=== PATIENT | male | born 1985 | race American Indian/Alaskan Native ===

== ENCOUNTER 2021-01-26 12:11 | Emergency (ER) | payer SELFPAY ==
[2021-01-26 12:34] VITALS: BP 135/85
[2021-01-26 13:34] LABS: Hematocrit 48.1 % (35.5-45.6); Hemoglobin 16.3 gm/dl (11.8-15.2); Mean Corpuscular HGB Conc 34 % (32-34); Mean Corpuscular Volume 91 fl (84-94); Red Blood Count 5.27 M/mm3 (3.65-5.03); Red Cell Distribution Width 13.8 % (13.2-15.2)
[2021-01-26 13:38] LABS: Platelet Count 93 K/mm3 (140-440)
[2021-01-26 13:58] LABS: Bilirubin,Urine NEG (Negative); Blood,Urine SM (Negative); Color,Urine Amber (Yellow); Mucus,Urine FEW /HPF; Urobilinogen,Urine < 2.0 mg/dL (<2.0)
[2021-01-26 14:01] LABS: Alanine Aminotransferase 30 units/L (7-56); Albumin 3.3 g/dL (3.9-5); BUN/Creatinine Ratio 8; Blood Urea Nitrogen 8 mg/dL (9-20); Calcium 9.4 mg/dL (8.4-10.2); Hemolysis Index 6
--- NOTE | 2021-01-26 15:29 | Event Note ---
ED Screening Note ED Screening Note: diarrhea that began 5 days +abd pain +fatigue +chills subjective fever reports had a couple episodes of blood in the stool no vomiting pmhx HIV no allergies to meds former smoker +ETOH did not get vaccinated for COVID 19 This initial assessment/diagnostic orders/clinical plan/treatment(s) is/are s ubject to change based on patients health status, clinical progression and re- assessment by fellow clinical providers in the ED. Further treatment and workup at subsequent clinical providers discretion. Patient/guardian urged not to elope from the ED as their condition may be serious if not clinically assessed and managed. Initial orders include: acc evaluation
[2021-01-26 16:34] LABS: Total Cells Counted 100
[2021-01-26 16:35] LABS: Anisocytosis RARE
[2021-01-26] MEDS ORDERED: SODIUM CHLORIDE 0.9% 1000 ML 1,000 ML IV ONE (18:06)
[2021-01-26] MEDS ORDERED: FAMOTIDINE 20 MG/2 ML INJ IV ONE ×2 (18:06→21:00)
[2021-01-26] MEDS ORDERED: MORPHINE 4 MG/1 ML INJ IV ONE ×2 (18:06→21:00)
[2021-01-26] MEDS ORDERED: ONDANSETRON 4 MG/2 ML INJ IV ONE ×2 (18:06→21:00)
--- NOTE | 2021-01-26 21:53 | Cat Scan Report ---
CT ABDOMEN AND PELVIS WITH CONTRAST HISTORY: Pt complains of "Generalized" abd pain with diarrhea x4days [id number] 100ml. COMPARISON: None. TECHNIQUE: CT images of the abdomen and pelvis were obtained following administration of intravenous contrast. All CT scans at this location are performed using CT dose reduction for ALARA by means of automated exposure control. CONTRAST: 100 ml of intravenous contrast administered. FINDINGS: Lungs/bones: Lung bases are clear. No acute osseous abnormality. Mild DJD in the left SI joint. Abdomen/pelvis: The liver, gallbladder, spleen, pancreas, adrenals, kidneys, and proximal GI tract a ppear unremarkable. The bladder and prostate are unremarkable with no pelvic free fluid. There is mild circumferential wall thickening along the sigmoid colon and also another area at the sp lenic flexure, both with subtle adjacent stranding. The remainder of the colon appears unremarkable w ith no acute inflammatory change otherwise. The appendix is normal. IMPRESSION: 1. Inflammatory changes in the colon as outlined above suggesting colitis. Since there appear to be s kip areas, consider inflammatory bowel disease such as Crohn's in the differential. Signer Name: Bruce Choe MD Signed: 01/26/2021 9:48 PM Workstation Name: [id number]
[2021-01-26] MEDS ORDERED: metroNIDAZOLE/NS 500 MG/100 ML 500 MG/100 ML BAG IV ONE (22:10)
[2021-01-26] MEDS ORDERED: dexAMETHasone 20 MG/5 ML VIAL IV ONE (22:10)
[2021-01-26] MEDS ORDERED: levoFLOXacin 500 MG TAB PO ONE (22:10)
--- NOTE | 2021-01-26 23:24 | Emergency Department Report ---
ED Abdominal Pain HPI - General Chief Complaint: Abdominal Pain Stated Complaint: DIARRHEA/ABDOMINAL PAIN Time Seen by Provider: 01/26/21 15:26 Source: patient Mode of arrival: Ambulatory Limitations: No Limitations - History of Present Illness Initial Comments: Patient is a 35-year-old -[place] male with a history of HIV who presents to the ED with complaint of acute onset persistent diffuse abdominal pain that radiates to the lower abdomen diffusely with intermittent nausea and diarrhea for the last 1 week, worse in the last 2 days. Patient states that he has also not had any appetite to eat and has been feeling generally weak since the onset of the symptoms. Patient states that diarrhea has been constant and worse especially in the last 2 days and states that the lower abdominal pain gets worse after he has had bowel movement. Patient denies hematochezia, fever, chills, vomiting, cough, chest pain or shortness of breath, dysuria, urinary frequency and urgency, low back pain, headache, dizziness, syncope or change in vision and testicular pain. MD Complaint: abdominal pain, other (Diarrhea with nausea) -: Sudden, week(s) (1) Location: diffuse Radiation: LLQ, RLQ, suprapubic Migration to: no migration Severity: severe Severity scale (0 -10): 7 Quality: cramping, sharp Consistency: intermittent Improves With: nothing Worsens With: nothing Associated Symptoms: denies other symptoms, nausea, diarrhea, anorexia. denies: vomiting, fever, chills, dysuria, hematemesis, hematochezia, melena, hematuria, syncope - Related Data Previous Rx's Medication Instructions Recorded Last Taken Type Ciprofloxacin HCl 500 mg PO Q12H #20 tablet 01/26/21 Unknown Rx Dicyclomine [Bentyl] 20 mg PO Q6H PRN #30 tablet 01/26/21 Unknown Rx Ondansetron [Zofran Odt] 4 mg PO Q8HR PRN #15 tab.rapdis 01/26/21 Unknown Rx metroNIDAZOLE [Flagyl] 500 mg PO Q8HR #30 tablet 01/26/21 Unknown Rx traMADoL [Ultram] 50 mg PO Q6HR PRN #12 tablet 01/26/21 Unknown Rx Allergies Allergy/AdvReac Type Severity Reaction Status Date / Time No Known Allergies Allergy Verified 01/26/21 12:31 ED Review of Systems ROS: Stated complaint: DIARRHEA/ABDOMINAL PAIN Other details as noted in HPI Constitutional: malaise, weakness. denies: chills, fever Eyes: denies: eye pain, eye discharge, vision change ENT: denies: ear pain, throat pain Respiratory: denies: cough, shortness of breath, wheezing Cardiovascular: denies: chest pain, palpitations Endocrine: no symptoms reported Gastrointestinal: abdominal pain, nausea, diarrhea. denies: vomiting Genitourinary: denies: urgency, dysuria Musculoskeletal: denies: back pain, joint swelling, arthralgia Skin: denies: rash, lesions Neurological: denies: headache, weakness, paresthesias Psychiatric: denies: anxiety, depression Hematological/Lymphatic: denies: easy bleeding, easy bruising ED Past Medical Hx - Past Medical History Previous Medical History?: Yes Hx HIV: Yes - Surgical History Past Surgical History?: No - Medications Home Medications: Home Medications Medication Instructions Recorded Confirmed Last Taken Type Ciprofloxacin HCl 500 mg PO Q12H #20 tablet 01/26/21 Unknown Rx Dicyclomine [Bentyl] 20 mg PO Q6H PRN #30 tablet 01/26/21 Unknown Rx Ondansetron [Zofran Odt] 4 mg PO Q8HR PRN #15 tab.rapdis 01/26/21 Unknown Rx metroNIDAZOLE [Flagyl] 500 mg PO Q8HR #30 tablet 01/26/21 Unknown Rx traMADoL [Ultram] 50 mg PO Q6HR PRN #12 tablet 01/26/21 Unknown Rx ED Physical Exam - General Limitations: No Limitations General appearance: alert, in no apparent distress, anxious - Head Head exam: Present: atraumatic, normocephalic, normal inspection - Eye Eye exam: Present: normal appearance, PERRL, EOMI Pupils: Present: normal accommodation - ENT ENT exam: Present: normal exam, normal orophraynx, mucous membranes moist, TM's normal bilaterally, normal external ear exam - Neck Neck exam: Present: normal inspection, full ROM - Respiratory Respiratory exam: Present: normal lung sounds bilaterally. Absent: respiratory distress, wheezes, rales, rhonchi, chest wall tenderness, accessory muscle use, decreased breath sounds, prolonged expiratory - Cardiovascular Cardiovascular Exam: Present: regular rate, normal rhythm, normal heart sounds. Absent: systolic murmur, diastolic murmur, rubs, gallop - GI/Abdominal GI/Abdominal exam: Present: soft, tenderness (Palpable diffuse lower abdominal tenderness), normal bowel sounds. Absent: guarding, rebound, hyperactive bowel sounds, hypoactive bowel sounds, organomegaly - Extremities Exam Extremities exam: Present: normal inspection, full ROM, normal capillary refill - Back Exam Back exam: Present: normal inspection, full ROM. Absent: tenderness, CVA tenderness (R), CVA tenderness (L), muscle spasm, paraspinal tenderness, v ertebral tenderness - Neurological Exam Neurological exam: Present: alert, oriented X3, CN II-XII intact, normal gait, reflexes normal - Psychiatric Psychiatric exam: Present: normal affect, normal mood, anxious - Skin Skin exam: Present: warm, dry, intact, normal color. Absent: rash ED Course Vital Signs 01/26/21 01/26/21 12:33 12:37 Temperature 98.3 F Pulse Rate 88 Respiratory 16 Rate Blood Pressure 135/85 [Left] O2 Sat by Pulse 99 Oximetry ED Medical Decision Making - Lab Data Result diagrams: 01/26/21 13:05 01/26/21 13:05 - Radiology Data Radiology results: report reviewed, [place] [address] Cat Scan Report Signed Patient: ARJUN DEL ANGEL JR MR# : [id number] : 1985 Acct:[id number] Age/Sex: 35 / M ADM Date: 01/26/21 Loc: ED Attending Dr: Ordering Physician: CAITLIN YOST Date of Service: 01/26/21 Procedure(s): CT abdomen pelvis w con Accession Number(s): [id number] cc: CAITLIN YOST CT ABDOMEN AND PELVIS WITH CONTRAST HISTORY: Pt complains of "Generalized" abd pain with diarrhea x4days [id number] 100ml. COMPARISON: None. TECHNIQUE: CT images of the abdomen and pelvis were obtained following administration of intravenous contrast. All CT scans at this location are performed using CT dose reduction for ALARA by means of automated exposure control. CONTRAST: 100 ml of intravenous contrast administered. FINDINGS: Lungs/bones: Lung bases are clear. No acute osseous abnormality. Mild DJD in the left SI joint. Abdomen/pelvis: The liver, gallbladder, spleen, pancreas, adrenals, kidneys, and proximal GI tract appear unremarkable. The bladder and prostate are unremarkable with no pelvic free fluid. There is mild circumferential wall thickening along the sigmoid colon and also another area at the splenic flexure, both with subtle adjacent stranding. The remainder of the colon appears unremarkable with no acute inflammatory change otherwise. The appendix is normal. IMPRESSION: 1. Inflammatory changes in the colon as outlined above suggesting colitis. Since there appear to be skip areas, consider inflammatory bowel disease such as Crohn's in the differential. Signer Name: Bruce Choe MD Signed: 01/26/2021 9:48 PM Workstation Name: [id number] Transcribed By: LÁZARO Dictated By: Bruce Choe MD Electronically Authenticated By: Bruce Choe MD Signed Date/Time: 01/26/212147 DD/ 42 TD/TT: - Medical Decision Making This is a 35-year-old -[place] male with a history of HIV who presents to the ED with complaint of acute onset persistent diffuse abdominal pain that radiates to the lower abdomen diffusely with intermittent nausea and diarrhea for the last 1 week, worse in the last 2 days. Patient states that he has also not had any appetite to eat and has been feeling generally weak since the onset of the symptoms. Patient states that diarrhea has been constant and worse especially in the last 2 days and states that the lower abdominal pain gets worse after he has had bowel movement. In the ED, patient is alert and oriented x3 and is not in any distress. Patient was treated in the ED with normal saline, also given antacids and pain medications as well as antiemetics. Lab test results were reviewed and showed mild hyponatremia of 132 mmol/L. The rest of the lab test results were nonactionable. The abdomen pelvis CT scan with contrast showed inflammatory changes in the colon showing mild circumferential wall thickening along the sigmoid colon and also another area at the splenic flexure, both with subtle adjacent stranding suggestive of colitis. The remainder of the colon appears unremarkable with no acute inflammatory change otherwise. The appendix is normal. Since there appear to be skip areas, consider inflammatory bowel disease such as Crohn's in the differential. Patient was treated in the ED empirically with Flagyl 500 mg IV x1 and Levaquin 500 mg p.o. x1, also given steroid Decadron 10 mg IV. On reevaluation with patient's pain is well controlled medications. Patient was therefore discharged home on pain medications, antibiotics and advised to follow-up with his primary care physician in 5 to 7 days for reevaluation. Patient was also given a referral to the GI physician Dr. Zac Monroy follow-up in 3 to 5 days for further evaluation. Patient was advised return to the ED immediately if symptoms get worse. - Differential Diagnosis Colitis; viral gastroenteritis; diverticulitis; appendicitis; kidney stones Critical care attestation.: If time is entered above; I have spent that time in minutes in the direct care of this critically ill patient, excluding procedure time. ED Disposition Clinical Impression: Abdominal pain in male, Diarrhea in adult patient, Acute colitis, Crohn's disease of colon without complication Disposition: TO HOME OR SELFCARE Is pt being admited?: No Does the pt Need Aspirin: No Condition: Stable Instructions: Abdominal Pain, Adult, [id number], Diarrhea, Adult, [id number], Colitis Additional Instructions: All lab test results were reviewed and are all nonactionable. Abdomen pelvis CT scan with contrast showed inflammatory changes in the colon consistent with colitis although Crohn's disease cannot be ruled out based on the pattern of inflammation. Therefore take medications with food, drink plenty of fluids, follow-up with your primary care physician in 7 to 10 days for reevaluation. Consider following up with a GI physician Dr. Zac Monroy for further evaluation. Contact Dr. Zac Monroy's office first thing in the morning on January to schedule a follow-up appointment. Return to the ED immediately if symptoms get worse. Prescriptions: Dicyclomine [Bentyl] 20 mg PO Q6H PRN #30 tablet PRN Reason: abdominal pain Ciprofloxacin HCl 500 mg PO Q12H #20 tablet metroNIDAZOLE [Flagyl] 500 mg PO Q8HR #30 tablet traMADoL [Ultram] 50 mg PO Q6HR PRN #12 tablet PRN Reason: Pain Ondansetron [Zofran Odt] 4 mg PO Q8HR PRN #15 tab.rapdis PRN Reason: Nausea Referrals: ZAC MONROY MD [Staff Physician] - 3-5 Days [facility] [Provider Group] - 7-10 days Forms: Work/School Release Form(ED) Time of Disposition: 23:36 Print Language: KOREAN
[2021-01-26] MEDS ORDERED: metroNIDAZOLE 500 MG TAB PO ONE (23:45)
== END 2021-01-26 23:55 | disposition home or self-care (01) ==
LOC: ED 12:11
DX: K52.9 Noninfective gastroenteritis and colitis, unspecified (principal); K50.10 Crohn's disease of large intestine without complications; R10.9 Unspecified abdominal pain; Z79.899 Other long term (current) drug therapy; Z21 Asymptomatic human immunodeficiency virus [HIV] infection status
CPT/HCPCS: 36415; 74177; 80053; 81001; 85007; 85025; 96361; 96374; 96375; 99284; J2270; J2405; J7030; Q9967